=== PATIENT | male | born 1990 | race Caucasian/White ===

== ENCOUNTER 2024-04-29 15:03 | Day surgery (SDC) | payer SELFPAY ==
[2024-04-29 15:08] VITALS: BMI 36.5
[2024-04-29 15:09] VITALS: BP 134/74; BMI 36.5
[2024-04-29 17:57] VITALS: BP 114/75
[2024-04-29 18:06] VITALS: BP 116/79
[2024-04-29 18:15] VITALS: BP 108/62
[2024-04-29 18:30] VITALS: BP 114/91
[2024-04-29 18:45] VITALS: BP 119/83
--- NOTE | 2024-04-29 19:15 | PTCARENOTE ---
Pt left with [facility]. Attempted to give report to pt's nurse at [place], no answer for unit. Pt sent with report and with his discharge instructions.
== END 2024-04-29 19:12 | disposition home or self-care (01) ==
LOC: SDS 15:03
PROVIDERS: ATTENDING PHYSICIAN Internal Medicine Gastroenterology; FAMILY PHYSICIAN Family Medicine
DX: K80.50 Calculus of bile duct without cholangitis or cholecystitis without obstruction (principal); R93.2 Abnormal findings on diagnostic imaging of liver and biliary tract
CPT/HCPCS: 43277; 43264; 74330; 76000; C1769

== ENCOUNTER 2024-05-03 21:13 | Inpatient (IN) | payer BC, SELFPAY ==
[2024-05-03] VITALS (12 sets, daily range): BP systolic 105–124; BP diastolic 59–88
[2024-05-03 05:13] LABS: % Basophils 0.5 % (0-2); % Immature Granulocytes 0.4 % (0-0.5); % Lymphocytes 21.8 % (20.5-51.1); % Neutrophils 65.3 % (42.2-75.2); Absolute Eosinophils 0.2 10^3/uL (0-0.7); Absolute Lymphocytes 1.7 10^3/uL (1.2-3.4); Absolute Monocytes 0.8 10^3/uL (0.1-0.6); Absolute Neutrophils 5.2 10^3/uL (1.4-6.5); Hematocrit 45.1 % (39.0-52.0); Hemoglobin 14.6 g/dL (13.0-18.0); Mean Corp Hgb Conc. 32.4 g/dL (33.0-37.0); Mean Corpuscular Hgb 27.3 pg (27.0-31.0); Mean Corpuscular Volume 84.3 fL (80.0-94.0); Mean Platelet Volume 10.9 fL (7.4-10.4); Nucleated Red Blood Cells % 0 % (-); Platelet Count 241 10^3/uL (130-400); Red Blood Cell Count 5.35 10^6/uL (4.70-6.10); Red Cell Dist. Width 13.2 % (11.5-14.5); White Blood Cell Count 7.9 10^3/uL (4.8-10.8)
[2024-05-03 05:32] LABS: ALT (SGPT) 189 U/L (0-50); AST (SGOT) 106 U/L (17-59); Albumin 4.8 g/dl (3.5-5.0); Alkaline Phosphatase 112 U/L (38-126); Blood Urea Nitrogen 16 mg/dl (9-20); Calcium 9.4 mg/dl (8.4-10.2); Carbon Dioxide 25 mmol/L (22-30); Chloride 104 mmol/L (98-107); Glucose 94 mg/dl (70-99); Lipase 80 U/L (23-300); Potassium 4.2 mmol/L (3.5-5.1); Sodium 141 mmol/L (135-145); Total Bilirubin 2.2 mg/dl (0.2-1.3); Total Protein 7.8 g/dl (6.3-8.2); eGFR > 60.00
--- NOTE | 2024-05-03 07:00 | ED.GENMED ---
History of Present Illness
<Arcenio Nicolas MD - Last Filed: 05/03/24 20:59>
General
Chief Complaint: Abdominal Pain
Source: patient
Exam Limitations: none
Time Seen by Provider: 05/03/24 06:32
Nursing documentation reviewed up to this point in time: agreed with
Travel History
Have you had any contact with someone who has COVID-19?: No
Do you have any symptoms of coronavirus? Fever > 100 degrees, chills, cough, shortness of breath, sore throat, loss of taste or smell, muscle aches, or headache?: No
History of Present Illness
History of Present Illness:
Patient status post ERCP 4 days ago, presents to ED secondary to worsening pain, especially with meals, after he was discharged home 3 days ago. Patient reports nausea sensation without vomiting. Abdominal pain described as sharp, nonradiating,
worse with meals, without any alleviating factors. Denies fever or chills. Patient also states that he has not had many bowel movements since last week. Denies back pain. Denies difficulty with urination.
Review of Systems
<Arcenio Nicolas MD - Last Filed: 05/03/24 20:59>
Review of Systems
Allergies reviewed?: Yes
All Other Systems: ROS reviewed and negative except as documented in HPI and ROS
Constitutional: Reports no symptoms; Denies fever
Respiratory: Reports no symptoms
Cardiac: Reports no symptoms
ABD/GI: Reports abdominal pain, nausea and constipated; Denies vomiting or diarrhea
: Reports no symptoms
Musculoskeletal: Reports no symptoms
Skin: Reports no symptoms
Neurological: Reports no symptoms
Phy Exam
<Arcenio Nicolas MD - Last Filed: 05/03/24 20:59>
Physical Exam
Physical Exam:
Physical Exam
General: mild distress, not acutely ill. afebrile.
Head: nc/at. eomi
Neck: supple. no meningeal signs.
Heart: s1/s2 regular rate and rhythm, no murmur. equal radial pulses.
Lungs: no acute respiratory distress. clear bilaterally
Abdomen: normal bowel sounds. mild epigastric/RUQ tenderness to palpation.
Neuro: alert and oriented. no focal neurological deficits
Skin: no rash
Psychiatric: well kept. interactive and cooperative
Extremities: no edema. no calf tenderness.
Course
<Arcenio Nicolas MD - Last Filed: 05/03/24 20:59>
Orders/Labs/Results
Orders:
Orders
05/03/24 05:03
CMP [Comprehensive Metabolic Panel] Urgent
Complete Blood Count/With Diff Urgent
Lipase Urgent
05/03/24 Breakfast
NPO
Allow oral meds: Yes
Allow clear liquids: No
05/03/24 06:51
HYDROmorphone [Dilaudid] 0.5 mg IV NOW STA
Pantoprazole [Protonix IV] 40 mg IV NOW STA
05/03/24 06:55
0.9% Sodium Chloride 1000 ml [Nss] 1,000 ml IV BOLUS
05/03/24 06:58
US Abdomen Complete/Upper Urgent
Comment:
Reason For Exam: RUQ/Epigastric pain
05/03/24 07:42
Urinalysis Reflex To Culture Urgent
Date Specimen was Collected: 05/03/24
Time Specimen was Collected: 07:29
Urine Microscopic Reflex Cult Urgent
05/03/24 10:39
MRI Abdomen [MR Abdomen Without Contrast] Routine
Comment:
Reason For Exam: Choledocholithiasis
Recent pill cam endoscopy?: No
05/03/24 12:59
HYDROmorphone [Dilaudid] 0.25 mg IV PACU-Q5MPRN PRN
HYDROmorphone [Dilaudid] 0.5 mg IV PACU-Q5MPRN PRN
Meperidine [Demerol] 12.5 mg IV PACU-Q5MPRN PRN
Ondansetron Injectable [Zofran] 4 mg IV PACU-ONCEPRN PRN
Prochlorperazine [Compazine] 5 mg IV PACU-ONCEPRN PRN
Notify MD As Directed
Notify physician if: for SDS patients with known or suspected sleep obstructive sleep apnea, monitor in the
PACU.
Notify MD for any apneic/desaturation episodes
O2 Therapy [RESP] Urgent
Titrate/Wean O2 to maintain O2 sat greater than (%): 92
Special Instructions: -Provide supplemental oxygen to achieve O2 sat of 92% or greater.
-After 15 min, may wean O2 and discontinue if patient is able to maintain O2 sat of 92%
or greater during recovery period.
If patient is a discharge home, without oxygen therapy, notify anestheiologist if
unable to maintain O2 SAT of 92% or greater on room air for MD clearance.
05/03/24 13:00
Normosol (Mult Electrolytes) [Normosol-R] 1,000 ml IV PER PROTOCOL
05/03/24 17:28
Ketorolac [Toradol] 15 mg IV NOW STA
05/03/24 17:47
Admit Patient As Directed
Co-Sign Provider:
Level of Care: Inpatient admission
Assign to:: Medical/Surgical
Physician / Group: Lina / KODAK
Diagnosis: Choledocholithiasis
Reason for Hospitalization: Choledocholithiasis
Expected length of stay greater than two midnights?: Yes
ELOS- Estimated Length of Stay in days: 3
I certify the patient meets the requirements for IP care: Yes
Code Status As Directed
Resuscitation Status: Full Code
Activity As Directed
Activity Level: Ambulate
Anti-embolism (RON) Hose As Directed
Type: Thigh high
Intake/ Output As Directed
Frequency: Per unit guidelines
Vital Signs As Directed
Frequency: Per unit guidelines
05/03/24 17:48
Pneumatic Compression Sleeves As Directed
Type: Thigh high
DX Deep Vein Thrombosis Video Routine
05/03/24 17:49
Rx Incentive Spirometry [RESP] Routine
Frequency: q1h while awake
# of times per hour: 10
05/03/24 18:00
Normosol (Mult Electrolytes) [Normosol-R] 1,000 ml IV 100 mls/hr
Piperacillin/Tazo 3.375 Gram [Zosyn] 3.375 gram in 50 ml IV Q6H
05/03/24 18:44
Ondansetron Injectable [Zofran] 4 mg IV Q6HPRN PRN
05/03/24 20:00
Acetaminophen [Tylenol] 650 mg PO Q4HWA
Flush (0.9% Sodium Chloride) [Flush (Nss)] See Dose Instructions IV PER PROTOCOL
05/03/24 23:36
Ketorolac [Toradol] 10 mg IV Q6HPRN PRN
05/04/24 06:00
Complete Blood Count/No Diff IN AM
Comprehensive Metabolic Panel IN AM
05/04/24 18:00
Enoxaparin Sodium [Lovenox] 40 mg SC QPM
Abnormal Lab Results
05/03/24 05/03/24
05:03 07:42
MCHC 32.4 L g/dL
(33.0-37.0)
MPV 10.9 H fL
(7.4-10.4)
Absolute Monos (auto) 0.8 H 10^3/uL
(0.1-0.6)
Monocytes % 10.0 H %
(1.7-9.3)
Total Bilirubin 2.2 H mg/dl
(0.2-1.3)
AST 106 H U/L
(17-59)
ALT 189 H U/L
(0-50)
Urine Ketones 3+ A
(Negative)
Ur Occult Blood Reflex 4+ A
(Negative)
Urine Bilirubin 1+ A
(Negative)
Leukocyte Esterase Rfl Trace A
(Negative)
Urine RBC 11-15 A /HPF
(0-2)
Urine Bacteria (Reflex) Few A
(Negative)
05/03/24 05:03
05/03/24 05:03
Vital Signs
Initial and Last Documented VS:
Initial Vital Signs
Temp Pulse Resp BP Pulse Ox
98.8 F 94 22 124/88 98
05/03/24 04:54 05/03/24 04:54 05/03/24 04:54 05/03/24 04:54 05/03/24 04:54
Last Documented Vital Signs
Temp Pulse Resp BP Pulse Ox
98.0 F 59 12 121/71 97
05/03/24 13:56 05/03/24 18:30 05/03/24 18:30 05/03/24 18:00 05/03/24 18:30
<Isha Reyez, - Last Filed: 05/03/24 17:43>
Orders/Labs/Results
Orders:
Orders
05/03/24 05:03
CMP [Comprehensive Metabolic Panel] Urgent
Complete Blood Count/With Diff Urgent
Lipase Urgent
05/03/24 Breakfast
NPO
Allow oral meds: Yes
Allow clear liquids: No
05/03/24 06:51
HYDROmorphone [Dilaudid] 0.5 mg IV NOW STA
Pantoprazole [Protonix IV] 40 mg IV NOW STA
05/03/24 06:55
0.9% Sodium Chloride 1000 ml [Nss] 1,000 ml IV BOLUS
05/03/24 06:58
US Abdomen Complete/Upper Urgent
Comment:
Reason For Exam: RUQ/Epigastric pain
05/03/24 07:42
Urinalysis Reflex To Culture Urgent
Date Specimen was Collected: 05/03/24
Time Specimen was Collected: 07:29
Urine Microscopic Reflex Cult Urgent
05/03/24 10:39
MRI Abdomen [MR Abdomen Without Contrast] Routine
Comment:
Reason For Exam: Choledocholithiasis
Recent pill cam endoscopy?: No
05/03/24 12:59
HYDROmorphone [Dilaudid] 0.25 mg IV PACU-Q5MPRN PRN
HYDROmorphone [Dilaudid] 0.5 mg IV PACU-Q5MPRN PRN
Meperidine [Demerol] 12.5 mg IV PACU-Q5MPRN PRN
Ondansetron Injectable [Zofran] 4 mg IV PACU-ONCEPRN PRN
Prochlorperazine [Compazine] 5 mg IV PACU-ONCEPRN PRN
Notify MD As Directed
Notify physician if: for SDS patients with known or suspected sleep obstructive sleep apnea, monitor in the
PACU.
Notify MD for any apneic/desaturation episodes
O2 Therapy [RESP] Urgent
Titrate/Wean O2 to maintain O2 sat greater than (%): 92
Special Instructions: -Provide supplemental oxygen to achieve O2 sat of 92% or greater.
-After 15 min, may wean O2 and discontinue if patient is able to maintain O2 sat of 92%
or greater during recovery period.
If patient is a discharge home, without oxygen therapy, notify anestheiologist if
unable to maintain O2 SAT of 92% or greater on room air for MD clearance.
05/03/24 13:00
Normosol (Mult Electrolytes) [Normosol-R] 1,000 ml IV PER PROTOCOL
05/03/24 17:28
Ketorolac [Toradol] 15 mg IV NOW STA
05/03/24 17:47
Admit Patient As Directed
Co-Sign Provider:
Level of Care: Inpatient admission
Assign to:: Medical/Surgical
Physician / Group: Lina / KODAK
Diagnosis: Choledocholithiasis
Reason for Hospitalization: Choledocholithiasis
Expected length of stay greater than two midnights?: Yes
ELOS- Estimated Length of Stay in days: 3
I certify the patient meets the requirements for IP care: Yes
Code Status As Directed
Resuscitation Status: Full Code
Activity As Directed
Activity Level: Ambulate
Anti-embolism (RON) Hose As Directed
Type: Thigh high
Intake/ Output As Directed
Frequency: Per unit guidelines
Vital Signs As Directed
Frequency: Per unit guidelines
05/03/24 17:48
Pneumatic Compression Sleeves As Directed
Type: Thigh high
DX Deep Vein Thrombosis Video Routine
05/03/24 17:49
Rx Incentive Spirometry [RESP] Routine
Frequency: q1h while awake
# of times per hour: 10
05/03/24 18:00
Normosol (Mult Electrolytes) [Normosol-R] 1,000 ml IV 100 mls/hr
Piperacillin/Tazo 3.375 Gram [Zosyn] 3.375 gram in 50 ml IV Q6H
05/03/24 18:44
Ondansetron Injectable [Zofran] 4 mg IV Q6HPRN PRN
05/03/24 20:00
Acetaminophen [Tylenol] 650 mg PO Q4HWA
Flush (0.9% Sodium Chloride) [Flush (Nss)] See Dose Instructions IV PER PROTOCOL
05/03/24 23:36
Ketorolac [Toradol] 10 mg IV Q6HPRN PRN
05/04/24 06:00
Complete Blood Count/No Diff IN AM
Comprehensive Metabolic Panel IN AM
05/04/24 18:00
Enoxaparin Sodium [Lovenox] 40 mg SC QPM
Abnormal Lab Results
05/03/24 05/03/24
05:03 07:42
MCHC 32.4 L g/dL
(33.0-37.0)
MPV 10.9 H fL
(7.4-10.4)
Absolute Monos (auto) 0.8 H 10^3/uL
(0.1-0.6)
Monocytes % 10.0 H %
(1.7-9.3)
Total Bilirubin 2.2 H mg/dl
(0.2-1.3)
AST 106 H U/L
(17-59)
ALT 189 H U/L
(0-50)
Urine Ketones 3+ A
(Negative)
Ur Occult Blood Reflex 4+ A
(Negative)
Urine Bilirubin 1+ A
(Negative)
Leukocyte Esterase Rfl Trace A
(Negative)
Urine RBC 11-15 A /HPF
(0-2)
Urine Bacteria (Reflex) Few A
(Negative)
05/03/24 05:03
05/03/24 05:03
Vital Signs
Initial and Last Documented VS:
Initial Vital Signs
Temp Pulse Resp BP Pulse Ox
98.8 F 94 22 124/88 98
05/03/24 04:54 05/03/24 04:54 05/03/24 04:54 05/03/24 04:54 05/03/24 04:54
Last Documented Vital Signs
Temp Pulse Resp BP Pulse Ox
98.0 F 59 12 121/71 97
05/03/24 13:56 05/03/24 18:30 05/03/24 18:30 05/03/24 18:00 06/03/24 18:30
<Arcenio Nicolas MD - Last Filed: 05/03/24 20:59>
MDM/Problems Addressed
MDM/Problems Addressed:
Blood work at time of discharge from the hospital last week reviewed, significant for mildly elevated liver function test.
Abdominal US report reviewed. Awaiting evaluation by (surgery)
Pt evaluated by - requesting MRI abdomen and will reassess afterwards
<Arcenio Nicolas MD - Last Filed: 05/03/24 20:59>
*Critical Care Note
Total Time (30-74mins, 75-104mins- exclusive of procedures): Not Applicable
<Isha Reyez DO - Last Filed: 05/03/24 17:43>
Update Note
Update Note:
Attending Signout Note:
14:00-assuming care of patient, presenting for upper abdominal pain. Patient status post ductal stone removal last week at [facility], however did not have his gallbladder removed during admission. Presents with worsening upper abdominal pain.
Laboratory analysis significant for mild transaminitis. Exam with right upper quadrant tenderness. Patient hemodynamically stable. Ultrasound with evidence of acute cholecystitis. Patient seen by surgery, recommending MRI. Pending MRI and
surgical disposition.
17:30 -MRI does show small stones in the common bile duct with findings concerning for acute cholecystitis. Did discuss with surgery, recommending admission with GI consultation. Will administer antibiotics. They will admit to their service.
Message sent to GI on-call
ED Attending Note
<Arcenio Nicolas MD - Last Filed: 05/03/24 20:59>
-
Portions of this chart may have been created with voice recognition software.� Occasional wrong word or��sound alike� substitutions may have occurred due to the inherent limitations of voice recognition software.
Discharge Plan
Departure
Patient Disposition: Admit
Date of Disposition: 05/03/24
Time of Disposition: 17:44
Admit to doctor: Dr. Mills
Presentation/result/management discussed w/ accepting MD/DO: Surgery
Patient with high blood pressure during this ER visit?: No
Condition: Good
Discharge Problem:
Acute cholecystitis, Choledocholithiasis
Prescriptions:
No Action
Theragen Tablet
1 tab PO DAILY
psyllium husk 0.4 gram Capsule
1.2 g PO DAILY
Referrals:
NONE,* [Family Provider] -
Interventions
Interventions:
*Risk Screen - Suicide Last Done: 05/03/24 04:54
*General Assessment Last Done: 05/03/24 08:03
*Neglect/Abuse Screening Last Done: 05/03/24 04:54
ED- Fall Risk Assessment Last Done: 05/03/24 08:03
*ED COVID-19 Vaccine History Last Done: 05/03/24 08:03
TI-Jpscdz-Qrwvbziigc Assessment Last Done: 05/03/24 08:03
Discharge Date and Time
Print Language: PALAUAN
[2024-05-03] MEDS: NSS 1000 IV (07:36)
[2024-05-03] MEDS: PROTONIX IV 40 MG IV (07:37)
[2024-05-03] MEDS: DILAUDID 0.5 MG IV (07:37)
[2024-05-03 08:12] LABS: Urine Albumin Trace (Neg - Trace); Urine Bilirubin 1+ (Negative); Urine Character Clear (Clear); Urine Color Yellow; Urine Glucose Negative (Negative); Urine Ketone 3+ (Negative); Urine Leukocyte Trace (Negative); Urine Nitrite Negative (Negative); Urine Occult Blood 4+ (Negative); Urine Specific Gravity 1.015 (<1.030); Urine Urobilinogen 1+ (Neg - 1+)
[2024-05-03 08:41] LABS: Urine Mucus Few; Urine Squamous Cell 0-2 /LPF (Few)
[2024-05-03 08:42] LABS: Urine Bacteria Few (Negative); Urine White Cell 0-2 /HPF (0-5)
--- NOTE | 2024-05-03 15:57 | HPS.HSE ---
Addendum entered and electronically signed by Marv Mills MD 05/03/24 17:58:
Patient seen and examined. Agree with assessment plan as documented below.
Patient is a 33 yo M with a PMH notable for recurrent choledocholithiasis who presents with abdominal pain. He notes a prior episode a few years ago when he was younger and underwent ERCP, a cholecystectomy was offered, but at the time he did not
feel ready for surgery. This second episode began with admission on 04/28 with transfer to for ERCP on 04/29 as there was no interventional GI doctor at [facility]. Intraprocedure, a prior biliary sphincterotomy was noted to be intact with stone noted in
the left main hepatic duct which was swept out. Post procedure, he was transferred back to [facility] where he was subsequently discharged the following day. He notes he did meet a surgeon at [facility], but she was unfamiliar with his case and he was
uncomfortable proceeding with surgery at that time. He presents to ER today with recurrence of pain with any PO intake. He has residual mild tenderness to the RUQ with deep palpation on exam. He has been limiting his food intake over the past
few days and notes that he has not had a real meal for the past 6 days. He denies fevers, chills, nausea or vomiting.
Gen: NAD
Abd: soft, minimal tenderness, ND, non-peritoneal
Labs and imaging were reviewed.
Patient is a 33 yo M p/w recurrent choledocholithiasis.
The natural history and pathophysiology of biliary and stone disease was discussed. Anatomy was reviewed. Role of cholecystectomy and preventing future episodes of choledocholithiasis was reviewed. We also discussed the possibility of clearance
of the stones via Quezada cystic approach. We also discussed repeat ERCP. The pros and cons of both approaches was discussed.
Tentative plan for a laparoscopic cholecystectomy with possible cholangiogram. The procedure itself, as well as the risks, benefits, and alternatives was discussed. Specifically, we discussed the risks of bleeding, infection, injury to surrounding
structures (bowel, bile ducts), CBD injury, need for open procedure. Typical post procedure recovery including pain management and the 10 to 20% risk of fluctuations in GI function was discussed.
Given OR availability and stability of patient, patient has been added to OR schedule tomorrow. Plan for repeat labs in the AM. GI consult for potential ERCP. Pending timing and availability of OR for laparoscopic cholecystectomy tomorrow, we
discussed the possibility of proceeding with traditional pathway of ERCP pre-cholecystectomy.
-- NPO, IVF
-- Zosyn
-- Pain control: Tylenol and Toradol
-- GI consult
Original Note:
Family Physician
-
Family Physician: * NONE
Chief Complaint
-
RUQ pain
History of Present Illness
Mr Kwan is a 33 yo male with a h/o cholelithiasis and choledocholithiasis who was recently admitted to [facility] last week with the same. He notes a prior episode a few years ago when he was younger and underwent ERCP, a cholecystectomy was
offered, but at the time he did not feel ready for surgery. This second episode began with admission on 04/28 with transfer to for ERCP on 04/29 as there was no interventional GI doctor at [facility]. Intraprocedure, a prior biliary sphincterotomy was
noted to be intact with stone noted in the left main hepatic duct which was swept out. Post procedure, he was transferred back to [facility] where he was subsequently discharged the following day. He notes he did meet a surgeon at [facility], but she was
unfamiliar with his case and he was uncomfortable proceeding with surgery at that time. He presents to ER today with recurrence of pain with any PO intake. He has residual mild tenderness to the RUQ with deep palpation on exam. He has been
limiting his food intake over the past few days and notes that he has not had a real meal for the past 6 days. He denies fevers, chills, nausea or vomiting.
Medical History
Past Medical History
Past Medical History: Reports Other (choledocholithiasis)
Past Surgical History: Reports Other (ERCP x2, last one 04/29/2024, Septoplasty)
Social History
Tobacco: Former Smoker
Alcohol: Occasional
Drug: None
Family History
Family History: Not pertinent
Allergies / Home Medications
Allergies reflects when Allergies were last updated in [facility].
Home Medications with original date entered in [facility]
Allergy/Medication List:
Patient Allergies
Allergy/AdvReac Type Severity Reaction Status Date / Time
No Known Allergies Allergy Verified 05/03/24 04:58
�Medication �Instructions �Recorded �Confirmed �Type
psyllium husk 0.4 gram capsule 1.2 g PO DAILY 05/03/24 05/03/24 History
therapeutic multivitamin 1 tab PO DAILY 05/03/24 05/03/24 History
Review of Systems
-
History Source: Patient
A 12 point ROS was completed and negative except as noted: Yes
Physical Exam
Vital Signs
Vital Signs
Temp Pulse Resp BP Pulse Ox
98.0 F 56 11 110/75 96
05/03/24 13:56 05/03/24 14:45 05/03/24 15:00 05/03/24 15:00 05/03/24 15:00
Physical Exam
General: Well Developed, Well Nourished and No Apparent Distress
HEENT: Moist mucous membranes
Respiratory: Non Labored Respirations
GI: Soft, Non Distended and Tender (very mild to RUQ)
Skin: Warm and Dry
Neuro: Awake, Alert and AO x 3
Psych: Calm
Laboratory Results
-
05/03/24 05:03
05/03/24 05:03
Laboratory Results
Total Bilirubin 2.2 mg/dl (0.2-1.3) H 05/03/24 05:03
AST 106 U/L (17-59) H 05/03/24 05:03
ALT 189 U/L (0-50) H 05/03/24 05:03
Alkaline Phosphatase 112 U/L (38-126) 05/03/24 05:03
Lipase 80 U/L (23-300) 05/03/24 05:03
Data Reviewed
-
Ultrasound: Image Personally Visualized and interpreted, Report Reviewed by me, Discussed with Physician and Discussed with Patient
Lab Data: Labs Reviewed by me, Discussed with Physician and Discussed with Patient
Old Records: Reviewed
Impression/Plan
-
IMPRESSION: 33 yo male with h/o choledocholithiasis with recent ERCP on 04/29 for removal of stone presenting with biliary colic/pain with PO intake. Bilirubin 2.2 previously reported as 1.6. No leukocytosis. No nausea, vomiting, fevers or chills. US
with biliary sludge throughout the gallbladder with minimal thickening of the gallbladder wall and dilated CBD to 12mm.
PLAN:
Concern for choledocholithiasis given US findings and LFT's. MRCP requested and pending
Patient agreeable to laparoscopic cholecystectomy: timing TBD pending MRCP findings as he may require an additional ERCP prior to OR intervention
Continue NPO
Dispo pending MRI results
[2024-05-03] MEDS: TORADOL 15 MG IV (17:36)
[2024-05-03] MEDS: ZOSYN 50 IV (19:04)
[2024-05-03] MEDS: NORMOSOL-R 1000 IV (19:37)
[2024-05-03] MEDS: TYLENOL PO (23:21)
[2024-05-04] VITALS (10 sets, daily range): BP systolic 101–149; BP diastolic 59–87; BMI 36.5
[2024-05-04] MEDS: TYLENOL PO ×4 (00:43→12:00)
[2024-05-04] MEDS: ZOSYN 50 IV ×4 (01:14→23:44)
[2024-05-04 04:49] LABS: Hematocrit 42.3 % (39.0-52.0); Hemoglobin 13.8 g/dL (13.0-18.0); Mean Corp Hgb Conc. 32.6 g/dL (33.0-37.0); Mean Corpuscular Hgb 27.8 pg (27.0-31.0); Mean Corpuscular Volume 85.3 fL (80.0-94.0); Mean Platelet Volume 11.4 fL (7.4-10.4); Platelet Count 205 10^3/uL (130-400); Red Blood Cell Count 4.96 10^6/uL (4.70-6.10); Red Cell Dist. Width 13.2 % (11.5-14.5); White Blood Cell Count 6.9 10^3/uL (4.8-10.8)
[2024-05-04 05:22] LABS: ALT (SGPT) 136 U/L (0-50); AST (SGOT) 48 U/L (17-59); Albumin 4.2 g/dl (3.5-5.0); Alkaline Phosphatase 99 U/L (38-126); Blood Urea Nitrogen 18 mg/dl (9-20); Calcium 9.2 mg/dl (8.4-10.2); Carbon Dioxide 24 mmol/L (22-30); Chloride 103 mmol/L (98-107); Estimated Creatinine Clearance > 125 ml/min; Glucose 72 mg/dl (70-99); Potassium 4.2 mmol/L (3.5-5.1); Sodium 140 mmol/L (135-145); Total Bilirubin 1.3 mg/dl (0.2-1.3); Total Protein 6.7 g/dl (6.3-8.2); eGFR > 60.00
[2024-05-04] MEDS: NORMOSOL-R 1000 IV ×3 (06:04→23:45)
--- NOTE | 2024-05-04 09:40 | CON.GI ---
Consultation
-
Date/Time Consultation Requested: 05/03/24 at 6pm
Date/Time Consultation Performed: 05/04/24 at 7am
Requesting Provider: Lina
Performing Provider: Sergio
Reason for Consultation: choledocholithiasis
Medical History
Chief Complaint / HPI
Chief Complaint: abd pain
History of Present Illness:
This pt is a 33 y/o man with a hx of choledocholithiais, cholecystitis who had an ERCP on 04/29 to removes bile duct stones. He was offered a cholecystectomy but declined. He went home and continued to have postprandial pain as he did before and
came back to the ER yesterday. No fevers, no N/V. He had a MRI that was done in the ER that suggested a small distal CBD stone. Of note he does have a spincterotomy. He doesn't note a true change in his symptoms but can't eat w/o pain
Past Medical History
Past Medical History: Other (choledocholithiasis)
Past Surgical History: Other (septoplasty)
Social History
Tobacco: Former Smoker
Alcohol: Occasional
Family History
Family History: Reviewed & Not Pertinent
Allergies / Home Medications
Allergy/AdvReac Type Severity Reaction Status Date / Time
No Known Allergies Allergy Verified 05/03/24 04:58
�Medication �Instructions �Recorded
psyllium husk 0.4 gram capsule 1.2 g PO DAILY 05/03/24
therapeutic multivitamin 1 tab PO DAILY 05/03/24
Review of Systems
-
All other systems: A 12 pt ROS was Negative except as stated above in HPI
Vital Signs
Temp Pulse Resp BP Pulse Ox
97.9 F 72 21 105/59 96
05/04/24 09:16 05/04/24 09:00 05/04/24 09:00 05/03/24 23:00 05/03/24 23:30
Physical Exam
Exam
General: Well Developed and No Apparent Distress
HEENT: Anicteric
Cardiac: S1/S2
GI: Soft and Non Tender (tender ruq)
Neuro: Awake and Alert
Psych: Calm
Results
WBC 6.9 10^3/uL (4.8-10.8) 05/04/24 04:25
Hgb 13.8 g/dL (13.0-18.0) 05/04/24 04:25
Hct 42.3 % (39.0-52.0) 05/04/24 04:25
MCV 85.3 fL (80.0-94.0) 05/04/24 04:25
Plt Count 205 10^3/uL (130-400) 05/04/24 04:25
Absolute Neuts (auto) 5.2 10^3/uL (1.4-6.5) 05/03/24 05:03
Sodium 140 mmol/L (135-145) 05/04/24 04:25
Potassium 4.2 mmol/L (3.5-5.1) 05/04/24 04:25
Chloride 103 mmol/L (98-107) 05/04/24 04:25
Carbon Dioxide 24 mmol/L (22-30) 05/04/24 04:25
BUN 18 mg/dl (9-20) 05/04/24 04:25
Creatinine 0.7 mg/dL (0.7-1.3) 05/04/24 04:25
Calcium 9.2 mg/dl (8.4-10.2) 05/04/24 04:25
Total Bilirubin 1.3 mg/dl (0.2-1.3) 05/04/24 04:25
AST 48 U/L (17-59) 05/04/24 04:25
ALT 136 U/L (0-50) H 05/04/24 04:25
Alkaline Phosphatase 99 U/L (38-126) 05/04/24 04:25
Lipase 80 U/L (23-300) 05/03/24 05:03
Assessment / Plan
-
Pt with a hx of choledocholithiasis s/p ERCP with sphincterotomy and stone removal on 04/29 who declined cholecystectomy but returns to the ER because of ongoing postprandial pain. His labs are stable and he does not have a wbc. The MRI (report
reviewed) questions a small CBD stone distally.
Plan:
- his symptoms are very likely related to cholecystitis and aren't changed in nature from before (just ongoing). would proceed with cholecystectomy which he now agrees to with intraop cholangiogram.
- if there is a small stone it will pass on its own due to sphincterotomy but if not then can always do an ERCP
d/w Dr. Mills via TT
will sign off call with questions
Data Reviewed
-
Radiology: Report Reviewed by me
-
-
Thank you for consultation and allowing me to participate in the patient's care. Please call the cyber security consultant GI physician during the after hours with any questions or concerns.
--- NOTE | 2024-05-04 10:00 | W.PN.GS2 ---
Today's Communication / Plan
-
-- Laparoscopic cholecystectomy with IOC
Assessment / Plan
-
Patient is a 33 yo M p/w recurrent choledocholithiasis
Labs and symptoms improved. GI consult noted, ongoing discussions with plan to proceed with laparoscopic cholecystectomy with attempted trans-cystic clearance of distal CBD stones.
Plan for laparoscopic cholecystectomy with cholangiogram. The procedure itself, as well as the risks, benefits, and alternatives was discussed. Specifically, we discussed the risks of bleeding, infection, injury to surrounding structures (bowel,
bile ducts), CBD injury, need for open procedure. Typical post procedure recovery was discussed. All questions answered.
-- Laparoscopic cholecystectomy with IOC
-- NPO, IVF
-- Zosyn
Subjective Data
-
Date of Service: May 04, 2024
No complaints. Feels improved. No nausea or vomiting. No fevers.
Objective Data
-
Vital Signs
Temp Pulse Resp BP Pulse Ox
97.9 F 72 21 105/59 96
05/04/24 09:16 05/04/24 09:00 05/04/24 09:00 05/03/24 23:00 05/03/24 23:30
Lab Results
05/04/24 04:25
05/04/24 04:25
Calcium 9.2 mg/dl (8.4-10.2) 05/04/24 04:25
Total Bilirubin 1.3 mg/dl (0.2-1.3) 05/04/24 04:25
AST 48 U/L (17-59) 05/04/24 04:25
ALT 136 U/L (0-50) H 05/04/24 04:25
Alkaline Phosphatase 99 U/L (38-126) 05/04/24 04:25
Total Protein 6.7 g/dl (6.3-8.2) 05/04/24 04:25
Albumin 4.2 g/dl (3.5-5.0) 05/04/24 04:25
Physical Exam
-
Gen: NAD
Abd: soft, NT/ND, non-peritoneal
--- NOTE | 2024-05-04 10:04 | W.SUR.PREOP ---
Pre-Operative Surgical Note
-
I have examined this patient prior to the performance of the scheduled procedure.
The patient's condition is unchanged from the time of the current History and
Physical and the patient is able to undergo the scheduled procedure.
[2024-05-04] MEDS: ZOSYN IV (11:47)
--- NOTE | 2024-05-04 13:08 | W.IMMPOSTOP ---
Addendum entered and electronically signed by Marv Mills MD 05/04/24 13:33:
[facility]#[id number]
Original Note:
Surgical Immed Post Op Note
-
Primary Surgeon: Lina
Assisting Surgeon: None
Pre-op Diagnosis: Choledocholithiasis
Post-op Diagnosis: Choledocholithiasis
Procedure Performed: Laparoscopic cholecystectomy with IOC
Anesthesia Type: General
Specimen / Cultures:
1. Gallbladder
Estimated Blood Loss: 7 cc
Complications: None
Operative Findings:
1. Dilated flaccid GB, mild chronic wall thickening
2. Critical view of safety
3. Distal sludge appreciated with emptying into duodenum, anatomy confirmed
--- NOTE | 2024-05-04 14:20 | PTCARENOTE ---
Pt received from the PACU via bed. Transport was w/o incident. Pt is AAOx3, HRR, lungs are clear, resp. easy, pulse ox96%RA. Pt's abd with 5 Lap sites well approximated with surgical glue, no drainage or redness noted. Pt denies pain and denies
nausea at this time. VSS, Pt is afebrile. Pt instructed on plan of care. Pt verbalized understanding of instructions. Call [place] is within reach.
[2024-05-04] MEDS: LOVENOX 40 MG SC (17:18)
[2024-05-04] MEDS: TYLENOL 650 MG PO ×3 (17:18→23:44)
[2024-05-04] MEDS: TORADOL 10 MG IV (17:29)
[2024-05-04] MEDS: ROXICODONE 5 MG PO (22:02)
[2024-05-05] MEDS: TYLENOL 650 MG PO ×2 (03:01→08:59)
[2024-05-05] MEDS: ZOSYN 50 IV (05:50)
[2024-05-05 06:36] LABS: Hematocrit 40.5 % (39.0-52.0); Hemoglobin 13.2 g/dL (13.0-18.0); Mean Corp Hgb Conc. 32.6 g/dL (33.0-37.0); Mean Corpuscular Hgb 27.6 pg (27.0-31.0); Mean Corpuscular Volume 84.7 fL (80.0-94.0); Mean Platelet Volume 11.4 fL (7.4-10.4); Platelet Count 210 10^3/uL (130-400); Red Blood Cell Count 4.78 10^6/uL (4.70-6.10); Red Cell Dist. Width 13.2 % (11.5-14.5); White Blood Cell Count 10.6 10^3/uL (4.8-10.8)
[2024-05-05 06:57] LABS: ALT (SGPT) 118 U/L (0-50); AST (SGOT) 48 U/L (17-59); Albumin 3.8 g/dl (3.5-5.0); Alkaline Phosphatase 91 U/L (38-126); Blood Urea Nitrogen 12 mg/dl (9-20); Calcium 8.8 mg/dl (8.4-10.2); Carbon Dioxide 25 mmol/L (22-30); Chloride 103 mmol/L (98-107); Estimated Creatinine Clearance > 125 ml/min; Glucose 117 mg/dl (70-99); Potassium 4.2 mmol/L (3.5-5.1); Sodium 138 mmol/L (135-145); Total Protein 6.4 g/dl (6.3-8.2); eGFR > 60.00
[2024-05-05 07:20] VITALS: BP 155/79
--- NOTE | 2024-05-05 07:30 | W.PN.GS2 ---
Today's Communication / Plan
-
-- OK for DC
Assessment / Plan
-
Patient is a 33 yo M p/w recurrent choledocholithiasis, POD#1 s/p laparoscopic cholecystectomy with IOC
Recovering well. No major postoperative concerns. Labs reviewed and reassuring with normal bilirubin and downtrending LFTs.
-- LFD
-- Pain control: Tylenol, Toradol, Oxycodone
-- No need for further abx
-- Lovenox for DVT
-- DC home
Subjective Data
-
Date of Service: May 05, 2024
No major complaints. Reports shoulder soreness and abdominal soreness with movement. Symptoms improved from admission. 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 No fevers or chills. Ambulating.
Voiding
Objective Data
-
Intake and Output
05/04/24 05/05/24 05/06/24
06:59 06:59 06:59
Intake Total 3120 / 3120
Output Total 1150 / 1150
Balance 1969 / 1970
Intake:
Oral fluids 1320 / 1320
IV fluids (Total) 1700 / 1700
Normosal 100 / 100
IV piggybacks 100 / 100
Output:
Urine, Voided 1150 / 1150
Other:
Number of approximated LARGE 3
amounts of urine
Vital Signs
Temp Pulse Resp BP Pulse Ox
98.2 F 60 18 118/64 97
05/04/24 23:32 05/04/24 23:32 05/04/24 23:32 05/04/24 23:32 05/04/24 23:32
Lab Results
05/05/24 05:41
05/05/24 05:41
Calcium 8.8 mg/dl (8.4-10.2) 05/05/24 05:41
Total Bilirubin 1.0 mg/dl (0.2-1.3) 05/05/24 05:41
AST 48 U/L (17-59) 05/05/24 05:41
ALT 118 U/L (0-50) H 05/05/24 05:41
Alkaline Phosphatase 91 U/L (38-126) 05/05/24 05:41
Total Protein 6.4 g/dl (6.3-8.2) 05/05/24 05:41
Albumin 3.8 g/dl (3.5-5.0) 05/05/24 05:41
Physical Exam
-
Gen: NAD
Abd: soft, appropriately tender, ND, non-peritoneal, incisions c/d/i - no erythema, ecchymosis or drainage
--- NOTE | 2024-05-05 10:36 | CM ---
Met briefly with patient who came in on 05/04/24 for planned surgery. He is POD#1 s/p laparoscopic cholecystectomy with IOC.
He is independent and has no needs at discharge.
== END 2024-05-05 10:44 | disposition home or self-care (01) | DRG 419 ==
LOC: 2 SOUTH 21:13
PROVIDERS: Emergency Medicine; ADMITTING PHYSICIAN Surgery; EMERGENCY PHYSICIAN Student in an Organized Health Care Education/Training Program; OTHER PHYSICIAN Internal Medicine
PROC: 0FT44ZZ Resection of Gallbladder, Percutaneous Endoscopic Approach (ICD-10-PCS; 2024-05-04)
PROC: BF50200 Other Imaging of Bile Ducts using Fluorescing Agent, Indocyanine Green Dye, Intraoperative (ICD-10-PCS; 2024-05-04)
DX: K80.46 Calculus of bile duct with acute and chronic cholecystitis without obstruction (principal); Z87.891 Personal history of nicotine dependence
CPT/HCPCS: 88304; 74181; 74300; 76000; 76700; 80053; 81003; 81015; 83690; 85025; 85027; 96361; 96374; 96375; 99285; J1610

== ENCOUNTER → 2024-08-05 12:04 | Outpatient (REF) | payer BC, SELFPAY | LOC: PAVMRI 12:04 | PROVIDERS: ATTENDING PHYSICIAN Nurse Practitioner Family; FAMILY PHYSICIAN Family Medicine | DX: K83.8 Other specified diseases of biliary tract (principal) | CPT/HCPCS: 74181 ==

== ENCOUNTER 2024-10-19 06:15 | Day surgery (SDC) | payer BC, SELFPAY ==
[2024-10-19] VITALS (8 sets, daily range): BP systolic 104–111; BP diastolic 65–79; BMI 37.8
--- NOTE | 2024-10-19 12:02 | SUR.PHASEI ---
comfortable in pacu without pain or nausea, taking ice chips po. vss, will discharge to [facility]
== END 2024-10-19 12:50 | disposition home or self-care (01) ==
LOC: GI 06:15
PROVIDERS: Internal Medicine Gastroenterology; ATTENDING PHYSICIAN Internal Medicine Gastroenterology
PROC: 0FC98ZZ Extirpation of Matter from Common Bile Duct, Via Natural or Artificial Opening Endoscopic (ICD-10-PCS; 2024-10-19)
DX: K80.50 Calculus of bile duct without cholangitis or cholecystitis without obstruction (principal)
CPT/HCPCS: 43264; 43262; 74330; 76000; C1769